=== PATIENT | female | born 1940 | race Caucasian/White ===

== ENCOUNTER 2016-12-15 21:09 | Observation (INO) | payer MEDICARE, OTHER ==
[~2016-12-15] VITALS: Ht 177.8 cm; Wt 79.8 kg
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
[2016-12-15 22:18] LABS: BASOPHILS 0.1 %; BASOPHILS ABSOLUTE 0.02 10/3/uL (0.0-0.16); EOSINOPHILS 0.4 %; EOSINOPHILS ABSOLUTE 0.06 10/3/uL (0.0-0.53); HEMATOCRIT 32.4 % (36.0-48.0); HEMOGLOBIN 10.9 g/dL (12.0-16.0); IMMATURE GRANULOCYTES 0.2 %; IMMATURE GRANULOCYTES ABSOLUTE 0.03 10/3/uL (0.0-0.11); LYMPHOCYTES 11.2 %; MANUAL DIFF NO %; MEAN CORPUS HGB CONC 33.6 g/dL (32.0-36.0); MEAN CORPUSCULAR HEMOGLOB 30.4 pg (26.0-34.0); MEAN CORPUSCULAR VOLUME 90.3 fL (80-100); MEAN PLATELET VOLUME 9.4 fL (9.2-13.0); MONOCYTES 6.7 %; MONOCYTES ABSOLUTE 0.96 10/3/uL (0.21-1.20); NEUTROPHILS 81.4 %; NEUTROPHILS ABSOLUTE 11.64 10/3/uL (2.02-8.40); PLATELET COUNT 274 10/3/uL (150-400); RBC DISTRIBUTION WIDTH 13.5 % (12.0-16.0); RED CELL COUNT 3.59 10/6/uL (4.0-5.6); WHITE BLOOD CELLS 14.3 10/3/uL (4.5-10.5)
[2016-12-15 22:29] LABS: BUN (BLOOD UREA NITROGEN) 23 MG/DL (6-23); CALCIUM, SERUM 9.3 MG/DL (8.5-10.4); CHLORIDE, SERUM 103 MMOL/L (96-112); CO2 (CARBON DIOXIDE) 26 MMOL/L (24-34); CREATININE 1.17 MG/DL (0.55-1.02); GFR AFRICAN AMERICAN 52 ML/MIN (>=60); GFR NON AFRICAN AMERICAN 45 ML/MIN (>=60); GLUCOSE, SERUM 122 MG/DL (60-99); POTASSIUM, SERUM 3.7 MMOL/L (3.5-5.3); SODIUM, SERUM 138 MMOL/L (135-148)
[2016-12-15 22:34] LABS: LACTATE 0.6 MMOL/L (0.3-2.4)
[2016-12-15] MEDS ORDERED: HYZAAR 100/25 T1 TAB PO (22:41)
[2016-12-15] MEDS ORDERED: SYN075 PO (22:41)
[2016-12-15] MEDS ORDERED: COREGCR20 PO (22:41)
[2016-12-15] MEDS ORDERED: PREM625 PO (22:42)
[2016-12-15] MEDS ORDERED: CELEBREX2 PO (22:48)
[2016-12-16 07:06] LABS: HEMATOCRIT 33.1 % (36.0-48.0); MEAN CORPUS HGB CONC 33.2 g/dL (32.0-36.0); MEAN CORPUSCULAR HEMOGLOB 30.4 pg (26.0-34.0); MEAN CORPUSCULAR VOLUME 91.4 fL (80-100); MEAN PLATELET VOLUME 9.4 fL (9.2-13.0); PLATELET COUNT 271 10/3/uL (150-400); RBC DISTRIBUTION WIDTH 13.3 % (12.0-16.0); RED CELL COUNT 3.62 10/6/uL (4.0-5.6); WHITE BLOOD CELLS 10.5 10/3/uL (4.5-10.5)
[2016-12-16 07:27] LABS: BUN (BLOOD UREA NITROGEN) 22 MG/DL (6-23); CALCIUM, SERUM 9.1 MG/DL (8.5-10.4); CHLORIDE, SERUM 107 MMOL/L (96-112); CO2 (CARBON DIOXIDE) 27 MMOL/L (24-34); CREATININE 0.94 MG/DL (0.55-1.02); GFR AFRICAN AMERICAN 68 ML/MIN (>=60); GFR NON AFRICAN AMERICAN 59 ML/MIN (>=60); GLUCOSE, SERUM 103 MG/DL (60-99); POTASSIUM, SERUM 3.4 MMOL/L (3.5-5.3); SODIUM, SERUM 139 MMOL/L (135-148)
[2016-12-16] MEDS ORDERED: MONODOX100 MG PO (14:22)
== END 2016-12-16 15:57 | disposition home or self-care (01) ==
LOC: ER 21:09 → 5SO 23:54
PROVIDERS: Internal Medicine; Nurse Practitioner Acute Care
DX: L03.113 Cellulitis of right upper limb (principal); I10 Essential (primary) hypertension; E03.9 Hypothyroidism, unspecified; Z90.710 Acquired absence of both cervix and uterus; Z88.0 Allergy status to penicillin; Z79.899 Other long term (current) drug therapy; W55.01XA Bitten by cat, initial encounter
CPT/HCPCS: 80048; 83036; 83605; 83735; 84443; 85025; 85027; 87040; 96372; 96374; 96375; 99284; A9270-GY; G0378